=== PATIENT | male | born 1965 ===

== ENCOUNTER 2016-12-04 17:17 | Emergency (ER) | payer BC, OTHER ==
[2016-12-04 17:44] VITALS: BP 104/81; PULSE 63; RESP 12; TEMP 99.1; O2SAT 96
[2016-12-04] MEDS ORDERED: CEPHALEXIN 500MG PREPACK#4 BTL TAKEHOME ONE (18:41)
--- NOTE | 2016-12-04 18:43 | UCPHY ---
H & P Time Seen by Provider: 12/04/16 18:15 Patient Type: New HPI/ROS: This patient reports right knee skin redness over the past 5 days that is increased in size over the past couple days. He reports 3/10 slight burning discomfort. He was kneeling on the knee doing some projects prior to the onset of the symptoms. He does remember any other injuries. No exacerbating factors are noted. ROS: No pain to the knee joint itself. No constitutional symptoms. No other skin complaints. No calf swelling or pain. 5 point ROS is otherwise negative Past Medical/Surgical History: Otherwise healthy Smoking Status: Never smoked Physical Exam: Physical Exam Vital signs are normal. General: No acute distress Eyes: Pupils equal and react to light. Extraocular motions are intact. Lungs: No respiratory distress. Cardiac: Brisk capillary refill is intact throughout. Pulses are 2+ and symmetric in the affected extremity. Skin: No rash or pallor. See the knee exam for pertinent skin findings Extremities: Atraumatic normal except for right knee Right knee: No swelling to the knee joints or prepatellar bursa. Retains full range of motion of the knee without change there is erythema to the skin to the medial and anterior needed extends to the distal thigh seems to originate from a very superficial abrasion to the medial aspect of the knee. This is slightly warm to touch. There is no fluctuant lesions. Neuro: Alert and oriented x3 with no sensorimotor deficits. Initial differential diagnosis: Cellulitis associated with superficial abrasion. Prepatellar bursitis Doubt gout or intrinsic knee problem Constitutional: Initial Vital Signs Temperature (C) 37.3 C 12/04/16 17:39 Heart Rate 63 12/04/16 17:39 Respiratory Rate 12 12/04/16 17:39 Blood Pressure 104/81 H 12/04/16 17:39 O2 Sat (%) 96 12/04/16 17:39 O2 Delivery Mode Room Air Allergies/Adverse Reactions: No Known Allergies Allergy (Unverified 12/04/16 17:39) Home Medications: Medication Instructions Recorded Cephalexin [Keflex (*)] 500 mg PO QID #40 cap 12/04/16 MDM/Departure - MDM Medications Given: Discontinued Medications Cephalexin (Keflex 500 Mg Prepack#4) 1 btl TAKEHOME EDNOW ONE PRN Reason: Protocol Stop: 12/04/16 18:42 Last Admin: 12/04/16 19:17 Dose: 1 btl ED Course/Re-evaluation: I counseled patient regarding cellulitis. Surgical marker is applied by our tech to outline the border of erythema and he started on Keflex with 1st dose administered here. - Depart Disposition: Home, Routine, Self-Care Clinical Impression: Cellulitis of knee, right Condition: Good Instructions: Cellulitis (ED) Additional Instructions: Diagnosis: Cellulitis of knee Plan: Warm packs to 3 times a day Elevate the knee when able Keflex antibiotic Ibuprofen Tylenol for discomfort if needed Return for any significant worsening despite treatment plan. Prescriptions: Cephalexin [Keflex (*)] 500 mg PO QID #40 cap Referrals: RAKAN PEREZ [Primary Care Provider] - As per Instructions - PQRS PQRS Measurement: NA
== END 2016-12-04 19:17 | disposition home or self-care (01) ==
LOC: CED 17:17
DX: L03.115 Cellulitis of right lower limb (principal)
CPT/HCPCS: 99203-PO; G0463-PO